=== PATIENT | female | born 1960 | race Caucasian/White ===

== ENCOUNTER 2017-01-01 02:15 | Observation (INO) | payer OTHER ==
[~2017-01-01] VITALS: Ht 167.6 cm; Wt 81.6 kg
[2017-01-01] MEDS ORDERED: TRAMADOL 50 MG TAB PO PRN (03:45)
[2017-01-01] MEDS ORDERED: NITROGLYCERIN 50 MG/250 ML IV PRN (03:45)
[2017-01-01] MEDS ORDERED: TEMAZEPAM 15 MG CAP PO PRN (03:45)
[2017-01-01] MEDS ORDERED: MORPHINE 2 MG/ML SYR IV PRN (03:45)
[2017-01-01] MEDS ORDERED: SODIUM CHLORIDE 0.9% FLUSH BAG 500 ML IV PRN (03:45)
[2017-01-01] MEDS ORDERED: DOCUSATE SOD 100 MG CAP PO PRN (03:45)
[2017-01-01] MEDS ORDERED: ONDANSETRON 4 MG VIAL IV PRN (03:45)
[2017-01-01] MEDS ORDERED: NITROGLYCERIN SL 0.4 MG TAB SL PRN (03:45)
[2017-01-01] MEDS ORDERED: LORAZEPAM 0.5 MG TAB PO PRN (03:45)
[2017-01-01] MEDS ORDERED: ACETAMINOPHEN 325 MG TAB PO PRN (03:45)
[2017-01-01] MEDS ORDERED: SODIUM CHLORIDE 0.9% 1,000 ML IV SCH (03:45)
[2017-01-01] MEDS ORDERED: SALINE FLUSH 10 ML FLUSH PRN (03:45)
[2017-01-01 05:21] VITALS: BP_SYST 118; BP_SYST 120; RESP 16; TEMP 97.4
[2017-01-01] MEDS ORDERED: Flu Vaccine Quadrivalent 60 MCG/0.5 ML IM.VACC ONE (05:30)
[2017-01-01 05:49] VITALS: Ht 167.6 cm; Wt 81.6 kg
[2017-01-01 07:26] VITALS: BP_SYST 105; RESP 16; TEMP 97.7
[2017-01-01] MEDS: SALINE FLUSH 10 ML FLUSH SCH ×2 (08:42→19:13)
[2017-01-01] MEDS: ASPIRIN EC 81 MG TAB PO SCH (08:42)
[2017-01-01] MEDS: SERTRALINE 50 MG TAB PO SCH (08:42)
[2017-01-01 11:20] VITALS: BP_SYST 114; RESP 16; TEMP 97.7
[2017-01-01 16:11] VITALS: BP_SYST 99; RESP 16; TEMP 97.9
[2017-01-01 19:31] VITALS: BP_SYST 110; RESP 18; TEMP 98.2
[2017-01-01 23:12] VITALS: BP_SYST 97; RESP 16; TEMP 98.1
[2017-01-02 03:36] VITALS: BP_SYST 113; RESP 16; TEMP 97.9
[2017-01-02 07:49] VITALS: BP_SYST 107; RESP 16; TEMP 97.6
[2017-01-02] MEDS: SALINE FLUSH 10 ML FLUSH SCH (08:00)
[2017-01-02] MEDS: ASPIRIN EC 81 MG TAB PO SCH (09:01)
[2017-01-02] MEDS: SERTRALINE 50 MG TAB PO SCH (09:02)
[2017-01-02 10:15] VITALS: BP_SYST 107; RESP 16; TEMP 97.6
== END 2017-01-02 07:42 | disposition home or self-care (01) ==
LOC: ENRESERVDT → ENRESERVTM → ER 02:15 → ENPENDDIS 03:26 → EMR 03:26 → 4THE 04:39
PROVIDERS: ADMIT Internal Medicine Cardiovascular Disease; ATTEND Internal Medicine Cardiovascular Disease
DX: R74.0 Nonspecific elevation of levels of transaminase and lactic acid dehydrogenase [LDH] (principal); R07.9 Chest pain, unspecified; R10.10 Upper abdominal pain, unspecified; Z87.891 Personal history of nicotine dependence; Z79.82 Long term (current) use of aspirin
CPT/HCPCS: 36415; 71010; 76705; 80053; 80061; 82150; 82550; 82553; 83615; 83690; 83735; 84484; 85025; 85610; 85730; 90471; 93005; 93306